=== PATIENT | female | born 1975 | race Two or more races ===

== ENCOUNTER 2020-10-23 02:00 | Emergency (ER) | payer MEDICAID ==
[~2020-10-23] VITALS: Ht 160 cm; Wt 111.4 kg
[~2020-10-23 02:00] MED LIST: [UNRECOGNIZED DRUG - REMARK]
[2020-10-23] MEDS ORDERED: KETOROLAC TROMETHAMINE 30 MG/ML VIAL IM ONE (02:15)
[2020-10-23] MEDS ORDERED: LIDOCAINE 5% TRANSDERMAL PATCH TD ONE (02:15)
[2020-10-23 02:30] VITALS: BP 202/136
[2020-10-23] MEDS ORDERED: CARVEDILOL 3.125 MG TABLET PO ONE (02:30)
[2020-10-23] MEDS ORDERED: FUROSEMIDE 20 MG TABLET PO ONE (02:30)
== END 2020-10-23 03:12 | disposition left against medical advice (07) ==
LOC: EMS 02:01
DX: M79.602 Pain in left arm (principal); I10 Essential (primary) hypertension; I11.0 Hypertensive heart disease with heart failure; I50.9 Heart failure, unspecified; E11.9 Type 2 diabetes mellitus without complications
CPT/HCPCS: 73090; 99283; J1885

== ENCOUNTER 2020-11-22 19:11 | Emergency (ER) | payer MEDICAID ==
[~2020-11-22] VITALS: Ht 157.5 cm; Wt 111.4 kg
[2020-11-22] MEDS ORDERED: CARV3 PO (21:54)
[2020-11-22] MEDS ORDERED: ASPI-1450 PO (21:54)
[2020-11-22] MEDS ORDERED: FURO20 PO (21:54)
[2020-11-22] MEDS ORDERED: INSULIN GLARGINE,HUM.REC.ANLOG 100 UNITS/ML SQ ONE (22:00)
[2020-11-22] MEDS ORDERED: FUROSEMIDE 20 MG TABLET PO ONE (22:00)
[2020-11-22] MEDS ORDERED: CARVEDILOL 3.125 MG TABLET PO ONE (22:00)
[2020-11-22] MEDS ORDERED: NAPROXEN 250 MG TABLET PO ONE (22:00)
[2020-11-22 22:40] VITALS: BP 151/98
== END 2020-11-22 23:09 | disposition left against medical advice (07) ==
LOC: EMS 19:12
DX: R35.8 Other polyuria (principal); E11.65 Type 2 diabetes mellitus with hyperglycemia
CPT/HCPCS: 82962; 96372; 99284; J1815

== ENCOUNTER 2021-09-16 07:45 | Inpatient (IN) | payer MEDICAID ==
[~2021-09-16] VITALS: Ht 157.5 cm; Wt 114.3 kg
[~2021-09-16 07:45] MED LIST changes: +ASPI-1450 PO; +CARV3 PO; +FURO20 PO
[2021-09-16] MEDS ORDERED: SODIUM CHLORIDE 0.9% 1,000 ML IV ONE (09:00)
[2021-09-16] MEDS ORDERED: ONDANSETRON HCL 4 MG/2 ML VIAL IVP ONE (09:00)
[2021-09-16 09:17] LABS: BASOPHILS % (AUTO) 1.2 % (0.0-2.0); EOSINOPHILS % (AUTO) 1.7 % (1.0-6.0); HEMATOCRIT 40.6 % (36-46); HEMOGLOBIN 13.9 g/dL (12.0-16.0); LYMPHOCYTES # (AUTO) 1.1 K/uL (1.0-4.8); LYMPHOCYTES % (AUTO) 14.4 % (22.0-44.0); MEAN CORPUSCULAR HEMOGLOBIN 30.3 pg (26.0-34.0); MEAN CORPUSCULAR HGB CONC 34.2 G/dL (31.0-37.0); MEAN CORPUSCULAR VOLUME 89 fL (80-100); MONOCYTES # (AUTO) 0.4 K/uL (0.1-1.0); MONOCYTES % (AUTO) 5.5 % (2.0-9.0); NEUTROPHILS # (AUTO) 5.9 K/uL (1.8-7.7); NEUTROPHILS % (AUTO) 77.2 % (40.0-70.0); PLATELET COUNT (AUTO) 330 K/uL (150-450); RED BLOOD CELL COUNT(AUTO) 4.59 MIL/uL (4.00-5.20); RED CELL DISTRIBUTION WIDTH 13.2 % (11.5-14.5)
[2021-09-16 09:36] LABS: B-TYPE NATRIURETIC PEPTIDE 342 pg/mL (0-100)
[2021-09-16 09:41] LABS: ANION GAP 11 mmol/L (8-16); CALCIUM, TOTAL 8.4 mg/dL (8.8-10.5); CARBON DIOXIDE 29 mmol/L (22-29); CHLORIDE 100 mmol/L (98-107); CREATININE 0.87 mg/dL (0.60-1.30); GLOMERULAR FILTR. RATE CALC > 60 mL/min (>60); GLUCOSE,RANDOM 268 mg/dL (70-110); POTASSIUM 3.6 mmol/L (3.5-5.1); SODIUM SERUM 140 mmol/L (136-145); UREA NITROGEN, BLOOD 14 mg/dL (7-18)
[2021-09-16] MEDS ORDERED: MORPHINE SULFATE 4 MG/ML SYRINGE IVP ONE (09:45)
[2021-09-16] MEDS ORDERED: NITROGLYCERIN 0.4 MG SUBLINGUAL TABLET #25 SL ONE (09:45)
[2021-09-16] MEDS ORDERED: ASPIRIN 81 MG CHEWABLE TABLET PO ONE (09:45)
[2021-09-16] MEDS ORDERED: IOHEXOL 350 MG/ML 150 ML VIAL ONE (09:51)
[2021-09-16] MEDS ORDERED: SODIUM CHLORIDE 0.9% 0 ML ONE (09:51)
[2021-09-16 10:02] LABS: ALANINE AMINOTRANSFERASE 76 U/L (12-78); ALBUMIN 3.2 g/dL (3.4-5.0); ALKALINE PHOSPHATASE 72 U/L (46-116); ASPARTATE AMINOTRANSFERASE 54 U/L (15-37); BILIRUBIN,TOTAL 0.6 mg/dL (0.1-1.0); CREATINE KINASE, TOTAL ONLY 93 U/L (26-192); HCG,QUANTITATIVE 1 mIU/mL (0-6); LIPASE 169 U/L (73-393); TOTAL PROTEIN, SERUM 7.4 g/dL (6.4-8.2)
[2021-09-16 11:17] LABS: COVID AG,FIA SOURCE NASAL SWAB
[2021-09-16 11:24] LABS: APPEARANCE,URINE CLEAR (CLEAR); BILIRUBIN,URINE NEGATIVE (NEGATIVE); GLUCOSE, URINE (UA) 300-500 mg/dL (NEGATIVE); KETONES,URINE TRACE mg/dL (NEGATIVE); LEUKOCYTE ESTERASE ,URINE NEGATIVE (NEGATIVE); NITRATE,URINE NEGATIVE (NEGATIVE); OCCULT BLOOD,URINE NEGATIVE (NEGATIVE); PROTEIN,URINE NEGATIVE (NEGATIVE); SPECIFIC GRAVITIY, URINE 1.011 (1.003-1.030); UROBILINOGEN,URINE <=1.0 mg/dL (<=1.0)
[2021-09-16] MEDS ORDERED: LABETALOL HCL 5 MG/ML 20 ML VIAL IVP ONE (11:45)
[2021-09-16 11:46] LABS: AMPHET/METH SCREEN,URINE POSITIVE (NEGATIVE); BARBITURATE SCREEN, URINE NEGATIVE (NEGATIVE); BENZODIAZEPINES SCREEN,URINE NEGATIVE (NEGATIVE); CANNABINOID SCREEN,URINE NEGATIVE (NEGATIVE); COCAINE SCREEN,URINE NEGATIVE (NEGATIVE); METHADONE SCREEN, URINE NEGATIVE (NEGATIVE); OPIATE SCREEN,URINE NEGATIVE (NEGATIVE)
[2021-09-16 11:57] LABS: PHENCYCLIDINE SCREEN,URINE NEGATIVE (NEGATIVE)
[2021-09-16 12:11] LABS: BACTERIA,URINE None Seen /HPF (None Seen); RBC,URINE None Seen /HPF (0-2); SQUAMOUS EPITHELIAL CELL,UR Few /LPF (None Seen); WBC,URINE None Seen /HPF (0-5)
[2021-09-16] MEDS ORDERED: ACETAMINOPHEN 325 MG TABLET PO PRN (12:45)
[2021-09-16] MEDS ORDERED: 0.9% SODIUM CHLORIDE 10 ML SYRINGE IVP PRN (12:45)
[2021-09-16] MEDS ORDERED: ONDANSETRON HCL 4 MG/2 ML VIAL IVP PRN ×2 (12:45→14:00)
[2021-09-16] MEDS ORDERED: CARVEDILOL 3.125 MG TABLET PO ONE (13:15)
[2021-09-16] MEDS ORDERED: CARVEDILOL 3.125 MG TABLET PO SCH (13:15)
[2021-09-16] MEDS ORDERED: PANTOPRAZOLE SODIUM 40 MG DR TABLET PO SCH (13:45)
[2021-09-16] MEDS ORDERED: MORPHINE SULFATE 2 MG/ML SYRINGE IVP PRN (13:45)
[2021-09-16] MEDS ORDERED: NITROGLYCERIN 0.4 MG SUBLINGUAL TABLET #25 SL PRN (13:45)
[2021-09-16] MEDS ORDERED: ZOLPIDEM TARTRATE 5 MG TABLET PO PRN (14:00)
[2021-09-16] MEDS ORDERED: BISACODYL 10 MG RECTAL RECTAL SUPPOSITORY PR PRN (14:00)
[2021-09-16] MEDS ORDERED: MAGNESIUM HYDROXIDE SUSPENSION 30 ML UDCUP PO PRN (14:00)
[2021-09-16] MEDS: MORPHINE SULFATE 2 MG/ML SYRINGE IVP PRN ×2 (14:36→21:42)
[2021-09-16] MEDS: AmLODIPine BESYLATE 10 MG TABLET PO SCH (14:38)
[2021-09-16 15:53] VITALS: BP 170/118
[2021-09-16] MEDS: LABETALOL HCL 5 MG/ML 20 ML VIAL IVP PRN ×2 (15:55→20:44)
[2021-09-16] MEDS: LOSARTAN POTASSIUM 25 MG TABLET PO SCH (17:11)
[2021-09-16] MEDS ORDERED: DEXTROSE 50%-WATER 25 GM/50 ML SYRINGE IVP PRN (20:15)
[2021-09-16 20:19] VITALS: BP 180/112
[2021-09-16] MEDS: OXYMETAZOLINE HCL 0.05% 15 ML NASAL SPRAY NASAL SCH (20:40)
[2021-09-16] MEDS: DOCUSATE SODIUM 100 MG CAPSULE PO SCH (20:40)
[2021-09-16] MEDS: INSULIN LISPRO 100 UNITS/ML SQ PRN (20:42)
[2021-09-16] MEDS: CARVEDILOL 6.25 MG TABLET PO SCH (20:43)
[2021-09-16 23:45] VITALS: BP 164/107
[2021-09-17] MEDS: OXYMETAZOLINE HCL 0.05% 15 ML NASAL SPRAY NASAL SCH ×4 (00:20→23:30)
[2021-09-17] MEDS: MORPHINE SULFATE 2 MG/ML SYRINGE IVP PRN ×3 (02:20→15:45)
[2021-09-17 03:36] LABS: GLUCOMETER DEV NAME(LOC) 5S.1B; GLUCOSE,POINT OF CARE 211 MG/DL (70-110)
[2021-09-17 05:06] VITALS: BP 148/94
[2021-09-17] MEDS: INSULIN LISPRO 100 UNITS/ML SQ PRN ×4 (05:57→20:31)
[2021-09-17 06:13] LABS: BASOPHILS % (AUTO) 1.2 % (0.0-2.0); EOSINOPHILS % (AUTO) 0.3 % (1.0-6.0); HEMATOCRIT 41.9 % (36-46); LYMPHOCYTES # (AUTO) 1.3 K/uL (1.0-4.8); LYMPHOCYTES % (AUTO) 12.6 % (22.0-44.0); MEAN CORPUSCULAR HEMOGLOBIN 29.8 pg (26.0-34.0); MEAN CORPUSCULAR HGB CONC 33.5 G/dL (31.0-37.0); MEAN CORPUSCULAR VOLUME 89 fL (80-100); MONOCYTES # (AUTO) 0.5 K/uL (0.1-1.0); MONOCYTES % (AUTO) 4.3 % (2.0-9.0); NEUTROPHILS # (AUTO) 8.7 K/uL (1.8-7.7); NEUTROPHILS % (AUTO) 81.6 % (40.0-70.0); PLATELET COUNT (AUTO) 433 K/uL (150-450); RED CELL DISTRIBUTION WIDTH 13.3 % (11.5-14.5)
[2021-09-17 06:27] LABS: ALANINE AMINOTRANSFERASE 75 U/L (12-78); ALBUMIN 3.2 g/dL (3.4-5.0); ALKALINE PHOSPHATASE 77 U/L (46-116); ANION GAP 8 mmol/L (8-16); ASPARTATE AMINOTRANSFERASE 48 U/L (15-37); BILIRUBIN,TOTAL 0.7 mg/dL (0.1-1.0); CALCIUM, TOTAL 8.8 mg/dL (8.8-10.5); CARBON DIOXIDE 28 mmol/L (22-29); CHLORIDE 100 mmol/L (98-107); CREATININE 0.73 mg/dL (0.60-1.30); GLOMERULAR FILTR. RATE CALC > 60 mL/min (>60); GLUCOSE,RANDOM 180 mg/dL (70-110); POTASSIUM 3.8 mmol/L (3.5-5.1); SODIUM SERUM 136 mmol/L (136-145); TOTAL PROTEIN, SERUM 7.6 g/dL (6.4-8.2); UREA NITROGEN, BLOOD 17 mg/dL (7-18)
[2021-09-17 07:28] VITALS: BP 155/104
[2021-09-17] MEDS ORDERED: GADOTERATE MEGLUMINE 10 MMOL/20 ML VIAL IVP ONE (08:05)
[2021-09-17] MEDS: ASPIRIN 81 MG DR TABLET PO SCH (09:06)
[2021-09-17] MEDS: LOSARTAN POTASSIUM 25 MG TABLET PO SCH (09:06)
[2021-09-17] MEDS: DOCUSATE SODIUM 100 MG CAPSULE PO SCH ×2 (09:06→20:28)
[2021-09-17] MEDS: CARVEDILOL 6.25 MG TABLET PO SCH (09:07)
[2021-09-17] MEDS: AmLODIPine BESYLATE 10 MG TABLET PO SCH (09:07)
[2021-09-17] MEDS: PANTOPRAZOLE SODIUM 40 MG DR TABLET PO SCH (09:07)
[2021-09-17 11:14] VITALS: BP 146/92
[2021-09-17] MEDS ORDERED: LORazepam 2 MG/ML VIAL IVP ONE (12:45)
[2021-09-17 13:41] LABS: GLUCOMETER DEV NAME(LOC) 5S.1B; GLUCOSE,POINT OF CARE 230 MG/DL (70-110)
[2021-09-17 15:18] VITALS: BP 136/97
[2021-09-17 20:01] VITALS: BP 149/100
[2021-09-17] MEDS: ATORVASTATIN CALCIUM 40 MG TABLET PO SCH (20:28)
[2021-09-17] MEDS: CARVEDILOL 12.5 MG TABLET PO SCH (20:28)
[2021-09-17] MEDS: MECLIZINE HCL 25 MG TABLET PO PRN (23:31)
[2021-09-17 23:56] LABS: GLUCOMETER DEV NAME(LOC) 5S.2B; GLUCOSE,POINT OF CARE 169 MG/DL (70-110)
[2021-09-18] VITALS (7 sets, daily range): BP systolic 125–153; BP diastolic 80–105
[2021-09-18 05:32] LABS: GLUCOMETER DEV NAME(LOC) 5N.1C; GLUCOSE,POINT OF CARE 212 MG/DL (70-110)
[2021-09-18 05:32] LABS: GLUCOMETER DEV NAME(LOC) 5N.1C; GLUCOSE,POINT OF CARE 156 MG/DL (70-110)
[2021-09-18] MEDS: MORPHINE SULFATE 2 MG/ML SYRINGE IVP PRN ×3 (05:47→13:55)
[2021-09-18] MEDS: INSULIN LISPRO 100 UNITS/ML SQ PRN ×4 (05:51→20:09)
[2021-09-18] MEDS: ONDANSETRON HCL 4 MG/2 ML VIAL IVP PRN (06:25)
[2021-09-18 06:26] LABS: BASOPHILS % (AUTO) 0.7 % (0.0-2.0); EOSINOPHILS % (AUTO) 0.6 % (1.0-6.0); HEMATOCRIT 40.5 % (36-46); HEMOGLOBIN 13.8 g/dL (12.0-16.0); LYMPHOCYTES # (AUTO) 1.8 K/uL (1.0-4.8); LYMPHOCYTES % (AUTO) 21.5 % (22.0-44.0); MEAN CORPUSCULAR HEMOGLOBIN 30.1 pg (26.0-34.0); MEAN CORPUSCULAR HGB CONC 34.1 G/dL (31.0-37.0); MEAN CORPUSCULAR VOLUME 88 fL (80-100); MONOCYTES # (AUTO) 0.5 K/uL (0.1-1.0); NEUTROPHILS # (AUTO) 6.1 K/uL (1.8-7.7); NEUTROPHILS % (AUTO) 71.2 % (40.0-70.0); PLATELET COUNT (AUTO) 422 K/uL (150-450); RED BLOOD CELL COUNT(AUTO) 4.58 MIL/uL (4.00-5.20); RED CELL DISTRIBUTION WIDTH 13.2 % (11.5-14.5)
[2021-09-18 06:34] LABS: HEMOGLOBIN A1C 8.1 % (3.8-5.6)
[2021-09-18 07:21] LABS: ANION GAP 3 mmol/L (8-16); CALCIUM, TOTAL 8.8 mg/dL (8.8-10.5); CARBON DIOXIDE 29 mmol/L (22-29); CHLORIDE 100 mmol/L (98-107); CHOL/HDL RATIO 3.6 (3.9-5.7); CHOLESTEROL 164 mg/dL (131-200); GLOMERULAR FILTR. RATE CALC > 60 mL/min (>60); GLUCOSE,RANDOM 194 mg/dL (70-110); HDL CHOLESTEROL 46 mg/dL (40-60); LDL CHOL (CALC.) 95 mg/dL (0-130); SODIUM SERUM 132 mmol/L (136-145); TRIGLYCERIDES 113 mg/dL (15-150); UREA NITROGEN, BLOOD 15 mg/dL (7-18)
[2021-09-18 08:07] LABS: GLUCOMETER DEV NAME(LOC) 5N.1C; GLUCOSE,POINT OF CARE 177 MG/DL (70-110)
[2021-09-18] MEDS: CARVEDILOL 12.5 MG TABLET PO SCH ×2 (08:52→20:07)
[2021-09-18] MEDS: PANTOPRAZOLE SODIUM 40 MG DR TABLET PO SCH (08:53)
[2021-09-18] MEDS: LOSARTAN POTASSIUM 50 MG TABLET PO SCH (08:53)
[2021-09-18] MEDS: AmLODIPine BESYLATE 10 MG TABLET PO SCH (08:53)
[2021-09-18] MEDS: ASPIRIN 81 MG DR TABLET PO SCH (08:53)
[2021-09-18] MEDS: CLOPIDOGREL BISULFATE 75 MG TABLET PO SCH (08:54)
[2021-09-18] MEDS: DOCUSATE SODIUM 100 MG CAPSULE PO SCH ×2 (08:54→20:07)
[2021-09-18] MEDS: OXYMETAZOLINE HCL 0.05% 15 ML NASAL SPRAY NASAL SCH ×3 (08:54→23:21)
[2021-09-18] MEDS: MECLIZINE HCL 25 MG TABLET PO PRN (09:58)
[2021-09-18] MEDS: HYDROCODONE/ACETAMINOPHEN 5-325 MG TABLET PO PRN ×2 (16:58→23:21)
[2021-09-18] MEDS: ATORVASTATIN CALCIUM 40 MG TABLET PO SCH (20:07)
[2021-09-18 20:26] LABS: GLUCOMETER DEV NAME(LOC) 5S.1B; GLUCOSE,POINT OF CARE 193 MG/DL (70-110)
[2021-09-18 20:27] LABS: GLUCOMETER DEV NAME(LOC) 5S.1B; GLUCOSE,POINT OF CARE 178 MG/DL (70-110)
[2021-09-18 21:51] LABS: GLUCOMETER DEV NAME(LOC) 5N.1C; GLUCOSE,POINT OF CARE 181 MG/DL (70-110)
[2021-09-19 00:08] VITALS: BP 138/77
[2021-09-19] MEDS: HYDROCODONE/ACETAMINOPHEN 5-325 MG TABLET PO PRN ×2 (03:53→15:13)
[2021-09-19 04:44] VITALS: BP 121/76
[2021-09-19] MEDS: INSULIN LISPRO 100 UNITS/ML SQ PRN ×4 (06:17→20:24)
[2021-09-19 06:51] LABS: GLUCOMETER DEV NAME(LOC) 5S.1B; GLUCOSE,POINT OF CARE 184 MG/DL (70-110)
[2021-09-19 07:40] VITALS: BP 126/72
[2021-09-19] MEDS: OXYMETAZOLINE HCL 0.05% 15 ML NASAL SPRAY NASAL SCH ×2 (08:23→15:13)
[2021-09-19] MEDS: ASPIRIN 81 MG DR TABLET PO SCH (08:23)
[2021-09-19] MEDS: PANTOPRAZOLE SODIUM 40 MG DR TABLET PO SCH (08:24)
[2021-09-19] MEDS: CLOPIDOGREL BISULFATE 75 MG TABLET PO SCH (08:24)
[2021-09-19] MEDS: AmLODIPine BESYLATE 10 MG TABLET PO SCH (08:24)
[2021-09-19] MEDS: DOCUSATE SODIUM 100 MG CAPSULE PO SCH ×2 (08:25→20:15)
[2021-09-19] MEDS: LOSARTAN POTASSIUM 50 MG TABLET PO SCH (08:25)
[2021-09-19] MEDS: CARVEDILOL 12.5 MG TABLET PO SCH ×2 (08:25→20:15)
[2021-09-19 10:52] VITALS: BP 122/78
[2021-09-19] MEDS: MECLIZINE HCL 25 MG TABLET PO PRN (12:26)
[2021-09-19 14:07] LABS: GLUCOMETER DEV NAME(LOC) 5S.1B; GLUCOSE,POINT OF CARE 210 MG/DL (70-110)
[2021-09-19 15:11] VITALS: BP 136/82
[2021-09-19] MEDS: ONDANSETRON HCL 4 MG/2 ML VIAL IVP PRN (18:06)
[2021-09-19 18:26] LABS: GLUCOMETER DEV NAME(LOC) 5N.3; GLUCOSE,POINT OF CARE 247 MG/DL (70-110)
[2021-09-19] MEDS: ATORVASTATIN CALCIUM 40 MG TABLET PO SCH (20:15)
[2021-09-19] MEDS: MORPHINE SULFATE 2 MG/ML SYRINGE IVP PRN (20:15)
[2021-09-19 20:24] VITALS: BP 137/99
[2021-09-20] VITALS (7 sets, daily range): BP systolic 128–177; BP diastolic 77–111
[2021-09-20] MEDS: OXYMETAZOLINE HCL 0.05% 15 ML NASAL SPRAY NASAL SCH ×5 (00:15→23:07)
[2021-09-20 02:14] LABS: BASOPHILS % (AUTO) 0.9 % (0.0-2.0); EOSINOPHILS % (AUTO) 0.5 % (1.0-6.0); HEMATOCRIT 35.1 % (36-46); HEMOGLOBIN 11.8 g/dL (12.0-16.0); LYMPHOCYTES # (AUTO) 2.4 K/uL (1.0-4.8); MEAN CORPUSCULAR HEMOGLOBIN 29.7 pg (26.0-34.0); MEAN CORPUSCULAR HGB CONC 33.8 G/dL (31.0-37.0); MEAN CORPUSCULAR VOLUME 88 fL (80-100); MONOCYTES # (AUTO) 0.7 K/uL (0.1-1.0); MONOCYTES % (AUTO) 6.8 % (2.0-9.0); NEUTROPHILS # (AUTO) 7.3 K/uL (1.8-7.7); NEUTROPHILS % (AUTO) 68.8 % (40.0-70.0); PLATELET COUNT (AUTO) 409 K/uL (150-450); RED BLOOD CELL COUNT(AUTO) 3.99 MIL/uL (4.00-5.20)
[2021-09-20] MEDS: INSULIN LISPRO 100 UNITS/ML SQ PRN ×4 (05:41→20:47)
[2021-09-20] MEDS: MORPHINE SULFATE 2 MG/ML SYRINGE IVP PRN ×2 (06:12→23:55)
[2021-09-20] MEDS: ASPIRIN 81 MG DR TABLET PO SCH (08:20)
[2021-09-20] MEDS: AmLODIPine BESYLATE 10 MG TABLET PO SCH (08:20)
[2021-09-20] MEDS: PANTOPRAZOLE SODIUM 40 MG DR TABLET PO SCH (08:20)
[2021-09-20] MEDS: LOSARTAN POTASSIUM 50 MG TABLET PO SCH (08:20)
[2021-09-20] MEDS: CLOPIDOGREL BISULFATE 75 MG TABLET PO SCH (08:21)
[2021-09-20] MEDS: CARVEDILOL 12.5 MG TABLET PO SCH ×2 (08:21→20:45)
[2021-09-20] MEDS: DOCUSATE SODIUM 100 MG CAPSULE PO SCH ×2 (08:21→20:44)
[2021-09-20] MEDS: HYDROCODONE/ACETAMINOPHEN 5-325 MG TABLET PO PRN ×2 (08:22→20:44)
[2021-09-20 12:57] LABS: GLUCOMETER DEV NAME(LOC) 5S.1B; GLUCOSE,POINT OF CARE 216 MG/DL (70-110)
[2021-09-20 12:57] LABS: GLUCOMETER DEV NAME(LOC) 5N.1C; GLUCOSE,POINT OF CARE 186 MG/DL (70-110)
[2021-09-20 15:46] LABS: GLUCOMETER DEV NAME(LOC) 5N.3; GLUCOSE,POINT OF CARE 202 MG/DL (70-110)
[2021-09-20] MEDS: ONDANSETRON HCL 4 MG/2 ML VIAL IVP PRN (17:30)
[2021-09-20] MEDS: ATORVASTATIN CALCIUM 40 MG TABLET PO SCH (20:45)
[2021-09-20] MEDS: LABETALOL HCL 5 MG/ML 20 ML VIAL IVP PRN (23:54)
[2021-09-21 03:38] VITALS: BP 136/105
[2021-09-21 03:40] LABS: GLUCOMETER DEV NAME(LOC) 5S.1B; GLUCOSE,POINT OF CARE 185 MG/DL (70-110)
[2021-09-21 03:40] LABS: GLUCOMETER DEV NAME(LOC) 5N.1C; GLUCOSE,POINT OF CARE 225 MG/DL (70-110)
[2021-09-21] MEDS: HYDROCODONE/ACETAMINOPHEN 5-325 MG TABLET PO PRN (04:05)
[2021-09-21] MEDS: INSULIN LISPRO 100 UNITS/ML SQ PRN ×4 (06:03→20:33)
[2021-09-21 06:21] LABS: GLUCOMETER DEV NAME(LOC) 5S.2B; GLUCOSE,POINT OF CARE 231 MG/DL (70-110)
[2021-09-21] MEDS: OXYMETAZOLINE HCL 0.05% 15 ML NASAL SPRAY NASAL SCH ×3 (08:00→23:17)
[2021-09-21] MEDS: DOCUSATE SODIUM 100 MG CAPSULE PO SCH ×2 (08:07→20:32)
[2021-09-21] MEDS: PANTOPRAZOLE SODIUM 40 MG DR TABLET PO SCH (08:07)
[2021-09-21] MEDS: ASPIRIN 81 MG DR TABLET PO SCH (08:07)
[2021-09-21] MEDS: CLOPIDOGREL BISULFATE 75 MG TABLET PO SCH (08:08)
[2021-09-21] MEDS: CARVEDILOL 12.5 MG TABLET PO SCH ×2 (08:08→20:32)
[2021-09-21] MEDS: AmLODIPine BESYLATE 10 MG TABLET PO SCH (08:08)
[2021-09-21] MEDS: LOSARTAN POTASSIUM 50 MG TABLET PO SCH (08:09)
[2021-09-21 08:10] VITALS: BP 119/74
[2021-09-21 08:58] LABS: BASOPHILS % (AUTO) 0.5 % (0.0-2.0); EOSINOPHILS % (AUTO) 0.1 % (1.0-6.0); HEMATOCRIT 31.6 % (36-46); HEMOGLOBIN 10.8 g/dL (12.0-16.0); LYMPHOCYTES # (AUTO) 2.2 K/uL (1.0-4.8); LYMPHOCYTES % (AUTO) 14.9 % (22.0-44.0); MEAN CORPUSCULAR HEMOGLOBIN 30.5 pg (26.0-34.0); MEAN CORPUSCULAR HGB CONC 34.2 G/dL (31.0-37.0); MEAN CORPUSCULAR VOLUME 89 fL (80-100); MONOCYTES # (AUTO) 0.8 K/uL (0.1-1.0); MONOCYTES % (AUTO) 5.2 % (2.0-9.0); NEUTROPHILS # (AUTO) 11.6 K/uL (1.8-7.7); NEUTROPHILS % (AUTO) 79.3 % (40.0-70.0); PLATELET COUNT (AUTO) 436 K/uL (150-450); RED BLOOD CELL COUNT(AUTO) 3.54 MIL/uL (4.00-5.20)
[2021-09-21 09:05] LABS: ANION GAP 6 mmol/L (8-16); CALCIUM, TOTAL 8.7 mg/dL (8.8-10.5); CARBON DIOXIDE 31 mmol/L (22-29); CHLORIDE 100 mmol/L (98-107); CREATININE 0.78 mg/dL (0.60-1.30); GLOMERULAR FILTR. RATE CALC > 60 mL/min (>60); GLUCOSE,RANDOM 231 mg/dL (70-110); POTASSIUM 4.4 mmol/L (3.5-5.1); SODIUM SERUM 137 mmol/L (136-145); UREA NITROGEN, BLOOD 31 mg/dL (7-18)
[2021-09-21 12:18] VITALS: BP 120/84
[2021-09-21 16:27] VITALS: BP 138/88
[2021-09-21] MEDS: MetFORMIN HCL 500 MG TABLET PO SCH (18:19)
[2021-09-21] MEDS: ACETAMINOPHEN 325 MG TABLET PO PRN ×2 (18:20→22:49)
[2021-09-21 20:21] LABS: GLUCOMETER DEV NAME(LOC) 5N.3; GLUCOSE,POINT OF CARE 253 MG/DL (70-110)
[2021-09-21] MEDS: ATORVASTATIN CALCIUM 40 MG TABLET PO SCH (20:32)
[2021-09-21 20:36] LABS: GLUCOMETER DEV NAME(LOC) 5S.1B; GLUCOSE,POINT OF CARE 205 MG/DL (70-110)
[2021-09-21 20:57] VITALS: BP 134/85
[2021-09-22 00:50] VITALS: BP 110/83
[2021-09-22 05:56] LABS: GLUCOMETER DEV NAME(LOC) 5S.2B; GLUCOSE,POINT OF CARE 194 MG/DL (70-110)
[2021-09-22 06:03] VITALS: BP 120/80
[2021-09-22] MEDS: ACETAMINOPHEN 325 MG TABLET PO PRN ×2 (06:59→16:42)
[2021-09-22] MEDS: INSULIN LISPRO 100 UNITS/ML SQ PRN ×4 (07:02→20:29)
[2021-09-22] MEDS: OXYMETAZOLINE HCL 0.05% 15 ML NASAL SPRAY NASAL SCH ×3 (08:00→23:34)
[2021-09-22 08:22] VITALS: BP 130/76
[2021-09-22] MEDS: MetFORMIN HCL 500 MG TABLET PO SCH ×2 (08:29→16:42)
[2021-09-22] MEDS: CLOPIDOGREL BISULFATE 75 MG TABLET PO SCH (08:29)
[2021-09-22] MEDS: LOSARTAN POTASSIUM 50 MG TABLET PO SCH (08:29)
[2021-09-22] MEDS: CARVEDILOL 12.5 MG TABLET PO SCH ×2 (08:29→20:23)
[2021-09-22] MEDS: AmLODIPine BESYLATE 10 MG TABLET PO SCH (08:29)
[2021-09-22] MEDS: ASPIRIN 81 MG DR TABLET PO SCH (08:29)
[2021-09-22] MEDS: DOCUSATE SODIUM 100 MG CAPSULE PO SCH ×2 (08:29→20:23)
[2021-09-22] MEDS: PANTOPRAZOLE SODIUM 40 MG DR TABLET PO SCH (08:29)
[2021-09-22 09:20] LABS: BASOPHILS % (AUTO) 0.8 % (0.0-2.0); EOSINOPHILS % (AUTO) 0.3 % (1.0-6.0); HEMATOCRIT 24.9 % (36-46); HEMOGLOBIN 8.5 g/dL (12.0-16.0); LYMPHOCYTES # (AUTO) 2.4 K/uL (1.0-4.8); LYMPHOCYTES % (AUTO) 16.5 % (22.0-44.0); MEAN CORPUSCULAR HEMOGLOBIN 30.4 pg (26.0-34.0); MEAN CORPUSCULAR HGB CONC 34.1 G/dL (31.0-37.0); MEAN CORPUSCULAR VOLUME 89 fL (80-100); MONOCYTES # (AUTO) 0.7 K/uL (0.1-1.0); MONOCYTES % (AUTO) 4.5 % (2.0-9.0); NEUTROPHILS # (AUTO) 11.5 K/uL (1.8-7.7); NEUTROPHILS % (AUTO) 77.9 % (40.0-70.0); PLATELET COUNT (AUTO) 418 K/uL (150-450); RED BLOOD CELL COUNT(AUTO) 2.78 MIL/uL (4.00-5.20); RED CELL DISTRIBUTION WIDTH 13.4 % (11.5-14.5)
[2021-09-22 09:34] LABS: B-TYPE NATRIURETIC PEPTIDE 75 pg/mL (0-100)
[2021-09-22 09:45] LABS: ALANINE AMINOTRANSFERASE 58 U/L (12-78); ALBUMIN 2.6 g/dL (3.4-5.0); ALKALINE PHOSPHATASE 53 U/L (46-116); ANION GAP 5 mmol/L (8-16); ASPARTATE AMINOTRANSFERASE 36 U/L (15-37); BILIRUBIN,TOTAL 0.3 mg/dL (0.1-1.0); CALCIUM, TOTAL 8.5 mg/dL (8.8-10.5); CARBON DIOXIDE 29 mmol/L (22-29); CHLORIDE 102 mmol/L (98-107); CREATININE 0.78 mg/dL (0.60-1.30); GLOMERULAR FILTR. RATE CALC > 60 mL/min (>60); GLUCOSE,RANDOM 222 mg/dL (70-110); SODIUM SERUM 136 mmol/L (136-145); TOTAL PROTEIN, SERUM 6.1 g/dL (6.4-8.2); UREA NITROGEN, BLOOD 33 mg/dL (7-18)
[2021-09-22 11:08] VITALS: BP 137/83
[2021-09-22 12:01] LABS: GLUCOMETER DEV NAME(LOC) 5S.2B; GLUCOSE,POINT OF CARE 161 MG/DL (70-110)
[2021-09-22 14:38] LABS: BASOPHILS % (AUTO) 1.4 % (0.0-2.0); EOSINOPHILS % (AUTO) 0.2 % (1.0-6.0); HEMATOCRIT 25.2 % (36-46); HEMOGLOBIN 8.4 g/dL (12.0-16.0); LYMPHOCYTES # (AUTO) 2.6 K/uL (1.0-4.8); LYMPHOCYTES % (AUTO) 16.3 % (22.0-44.0); MEAN CORPUSCULAR HGB CONC 33.4 G/dL (31.0-37.0); MEAN CORPUSCULAR VOLUME 90 fL (80-100); MONOCYTES # (AUTO) 0.7 K/uL (0.1-1.0); MONOCYTES % (AUTO) 4.7 % (2.0-9.0); NEUTROPHILS # (AUTO) 12.3 K/uL (1.8-7.7); NEUTROPHILS % (AUTO) 77.4 % (40.0-70.0); PLATELET COUNT (AUTO) 413 K/uL (150-450); RED BLOOD CELL COUNT(AUTO) 2.81 MIL/uL (4.00-5.20); RED CELL DISTRIBUTION WIDTH 13.6 % (11.5-14.5)
[2021-09-22 14:56] VITALS: BP 123/78
[2021-09-22 20:21] VITALS: BP 109/82
[2021-09-22] MEDS: FUROSEMIDE 20 MG/2 ML VIAL IVP SCH (20:23)
[2021-09-22] MEDS: ATORVASTATIN CALCIUM 40 MG TABLET PO SCH (20:23)
[2021-09-22 20:56] LABS: GLUCOMETER DEV NAME(LOC) 5N.3; GLUCOSE,POINT OF CARE 134 MG/DL (70-110)
[2021-09-23 04:34] VITALS: BP 130/69
[2021-09-23] MEDS: INSULIN LISPRO 100 UNITS/ML SQ PRN ×2 (05:53→12:59)
[2021-09-23 05:56] LABS: GLUCOMETER DEV NAME(LOC) 5S.2B; GLUCOSE,POINT OF CARE 137 MG/DL (70-110)
[2021-09-23 07:41] VITALS: BP 108/74
[2021-09-23] MEDS: AmLODIPine BESYLATE 10 MG TABLET PO SCH (08:42)
[2021-09-23] MEDS: LOSARTAN POTASSIUM 50 MG TABLET PO SCH (08:42)
[2021-09-23] MEDS: DOCUSATE SODIUM 100 MG CAPSULE PO SCH ×2 (08:43→21:25)
[2021-09-23] MEDS: PANTOPRAZOLE SODIUM 40 MG DR TABLET PO SCH (08:44)
[2021-09-23] MEDS: CARVEDILOL 12.5 MG TABLET PO SCH ×2 (08:45→21:26)
[2021-09-23] MEDS: MetFORMIN HCL 500 MG TABLET PO SCH ×2 (08:46→17:46)
[2021-09-23] MEDS: FUROSEMIDE 20 MG/2 ML VIAL IVP SCH ×2 (08:47→21:25)
[2021-09-23] MEDS: OXYMETAZOLINE HCL 0.05% 15 ML NASAL SPRAY NASAL SCH ×3 (08:48→23:14)
[2021-09-23 09:08] LABS: BASOPHILS % (AUTO) 0.8 % (0.0-2.0); EOSINOPHILS % (AUTO) 0.4 % (1.0-6.0); HEMATOCRIT 24.7 % (36-46); HEMOGLOBIN 8.3 g/dL (12.0-16.0); LYMPHOCYTES % (AUTO) 21.8 % (22.0-44.0); MEAN CORPUSCULAR HEMOGLOBIN 30.2 pg (26.0-34.0); MEAN CORPUSCULAR HGB CONC 33.8 G/dL (31.0-37.0); MEAN CORPUSCULAR VOLUME 90 fL (80-100); MONOCYTES # (AUTO) 0.7 K/uL (0.1-1.0); MONOCYTES % (AUTO) 5.2 % (2.0-9.0); NEUTROPHILS # (AUTO) 9.8 K/uL (1.8-7.7); NEUTROPHILS % (AUTO) 71.8 % (40.0-70.0); PLATELET COUNT (AUTO) 432 K/uL (150-450); RED BLOOD CELL COUNT(AUTO) 2.76 MIL/uL (4.00-5.20)
[2021-09-23 09:21] LABS: GLUCOMETER DEV NAME(LOC) 5S.1B; GLUCOSE,POINT OF CARE 153 MG/DL (70-110)
[2021-09-23 09:21] LABS: GLUCOMETER DEV NAME(LOC) 5S.1B; GLUCOSE,POINT OF CARE 174 MG/DL (70-110)
[2021-09-23 09:31] LABS: ALANINE AMINOTRANSFERASE 63 U/L (12-78); ALBUMIN 2.7 g/dL (3.4-5.0); ALKALINE PHOSPHATASE 54 U/L (46-116); ANION GAP 7 mmol/L (8-16); ASPARTATE AMINOTRANSFERASE 41 U/L (15-37); BILIRUBIN,TOTAL 0.4 mg/dL (0.1-1.0); CARBON DIOXIDE 29 mmol/L (22-29); CHLORIDE 101 mmol/L (98-107); GLOMERULAR FILTR. RATE CALC > 60 mL/min (>60); GLUCOSE,RANDOM 187 mg/dL (70-110); POTASSIUM 4.3 mmol/L (3.5-5.1); SODIUM SERUM 137 mmol/L (136-145); TOTAL PROTEIN, SERUM 6.4 g/dL (6.4-8.2); UREA NITROGEN, BLOOD 33 mg/dL (7-18)
[2021-09-23 10:34] LABS: CALCIUM, TOTAL 8.8 mg/dL (8.8-10.5)
[2021-09-23 12:38] VITALS: BP 109/64
[2021-09-23 13:51] LABS: GLUCOMETER DEV NAME(LOC) 5S.2B; GLUCOSE,POINT OF CARE 169 MG/DL (70-110)
[2021-09-23 16:05] VITALS: BP 129/65
[2021-09-23] MEDS: MECLIZINE HCL 25 MG TABLET PO PRN (17:48)
[2021-09-23 19:53] VITALS: BP 134/79
[2021-09-23 21:06] LABS: GLUCOMETER DEV NAME(LOC) 5N.3; GLUCOSE,POINT OF CARE 96 MG/DL (70-110)
[2021-09-23] MEDS: ATORVASTATIN CALCIUM 40 MG TABLET PO SCH (21:26)
[2021-09-23] MEDS: ACETAMINOPHEN 325 MG TABLET PO PRN (21:27)
[2021-09-23 23:54] VITALS: BP 110/62
[2021-09-24 00:16] LABS: GLUCOMETER DEV NAME(LOC) 5N.1C; GLUCOSE,POINT OF CARE 130 MG/DL (70-110)
[2021-09-24 04:17] VITALS: BP 111/71
[2021-09-24 07:41] VITALS: BP 128/79
[2021-09-24] MEDS: OXYMETAZOLINE HCL 0.05% 15 ML NASAL SPRAY NASAL SCH ×3 (08:00→23:17)
[2021-09-24] MEDS: AmLODIPine BESYLATE 10 MG TABLET PO SCH (09:02)
[2021-09-24] MEDS: PANTOPRAZOLE SODIUM 40 MG DR TABLET PO SCH (09:02)
[2021-09-24] MEDS: DOCUSATE SODIUM 100 MG CAPSULE PO SCH ×2 (09:02→20:56)
[2021-09-24] MEDS: LOSARTAN POTASSIUM 50 MG TABLET PO SCH (09:02)
[2021-09-24] MEDS: MetFORMIN HCL 500 MG TABLET PO SCH ×2 (09:02→18:04)
[2021-09-24] MEDS: CARVEDILOL 12.5 MG TABLET PO SCH ×2 (09:03→20:56)
[2021-09-24] MEDS: FUROSEMIDE 20 MG/2 ML VIAL IVP SCH ×2 (09:03→20:56)
[2021-09-24 11:16] VITALS: BP 110/75
[2021-09-24 12:01] LABS: GLUCOMETER DEV NAME(LOC) 5N.1C; GLUCOSE,POINT OF CARE 152 MG/DL (70-110)
[2021-09-24] MEDS: INSULIN LISPRO 100 UNITS/ML SQ PRN ×3 (12:33→20:13)
[2021-09-24 12:56] LABS: GLUCOMETER DEV NAME(LOC) 5S.2B; GLUCOSE,POINT OF CARE 190 MG/DL (70-110)
[2021-09-24 14:00] LABS: APPEARANCE,URINE HAZY (CLEAR); BILIRUBIN,URINE NEGATIVE (NEGATIVE); GLUCOSE, URINE (UA) NEGATIVE (NEGATIVE); KETONES,URINE NEGATIVE (NEGATIVE); LEUKOCYTE ESTERASE ,URINE TRACE (NEGATIVE); NITRATE,URINE NEGATIVE (NEGATIVE); OCCULT BLOOD,URINE NEGATIVE (NEGATIVE); PH,URINE 5.5 (5.0-8.0); PROTEIN,URINE NEGATIVE (NEGATIVE); SPECIFIC GRAVITIY, URINE 1.019 (1.003-1.030); UROBILINOGEN,URINE <=1.0 mg/dL (<=1.0)
[2021-09-24 14:32] LABS: BACTERIA,URINE None Seen /HPF (None Seen); RBC,URINE None Seen /HPF (0-2); WBC,URINE 0-2 /HPF (0-5)
[2021-09-24] MEDS: HYDROCODONE/ACETAMINOPHEN 5-325 MG TABLET PO PRN (15:04)
[2021-09-24 15:26] VITALS: BP 90/56
[2021-09-24] MEDS ORDERED: CARV6 PO (17:32)
[2021-09-24 19:56] LABS: GLUCOMETER DEV NAME(LOC) 5S.1B; GLUCOSE,POINT OF CARE 148 MG/DL (70-110)
[2021-09-24 20:23] VITALS: BP 95/52
[2021-09-24 20:56] LABS: GLUCOMETER DEV NAME(LOC) 5N.1C; GLUCOSE,POINT OF CARE 168 MG/DL (70-110)
[2021-09-24] MEDS: ATORVASTATIN CALCIUM 40 MG TABLET PO SCH (20:56)
[2021-09-25 00:16] VITALS: BP 106/63
[2021-09-25 04:52] VITALS: BP 108/63
[2021-09-25] MEDS: ACETAMINOPHEN 325 MG TABLET PO PRN (06:15)
[2021-09-25 07:37] LABS: BASOPHILS % (AUTO) 1.1 % (0.0-2.0); EOSINOPHILS % (AUTO) 1.1 % (1.0-6.0); HEMATOCRIT 22.3 % (36-46); HEMOGLOBIN 7.4 g/dL (12.0-16.0); LYMPHOCYTES # (AUTO) 3.5 K/uL (1.0-4.8); LYMPHOCYTES % (AUTO) 25.7 % (22.0-44.0); MEAN CORPUSCULAR HEMOGLOBIN 30.1 pg (26.0-34.0); MEAN CORPUSCULAR HGB CONC 33.3 G/dL (31.0-37.0); MEAN CORPUSCULAR VOLUME 91 fL (80-100); MONOCYTES # (AUTO) 0.7 K/uL (0.1-1.0); MONOCYTES % (AUTO) 5.3 % (2.0-9.0); NEUTROPHILS # (AUTO) 9.2 K/uL (1.8-7.7); NEUTROPHILS % (AUTO) 66.8 % (40.0-70.0); PLATELET COUNT (AUTO) 424 K/uL (150-450); RED BLOOD CELL COUNT(AUTO) 2.45 MIL/uL (4.00-5.20); RED CELL DISTRIBUTION WIDTH 14.7 % (11.5-14.5)
[2021-09-25 07:55] VITALS: BP 125/81
[2021-09-25] MEDS: OXYMETAZOLINE HCL 0.05% 15 ML NASAL SPRAY NASAL SCH ×2 (08:00→16:00)
[2021-09-25 08:41] LABS: GLUCOMETER DEV NAME(LOC) 5N.1C; GLUCOSE,POINT OF CARE 115 MG/DL (70-110)
[2021-09-25] MEDS: DOCUSATE SODIUM 100 MG CAPSULE PO SCH ×2 (08:59→20:26)
[2021-09-25] MEDS: MetFORMIN HCL 500 MG TABLET PO SCH ×2 (09:00→17:33)
[2021-09-25] MEDS: LOSARTAN POTASSIUM 50 MG TABLET PO SCH (09:00)
[2021-09-25] MEDS: PANTOPRAZOLE SODIUM 40 MG DR TABLET PO SCH (09:00)
[2021-09-25] MEDS: FUROSEMIDE 20 MG/2 ML VIAL IVP SCH (09:00)
[2021-09-25] MEDS: CARVEDILOL 12.5 MG TABLET PO SCH ×2 (09:00→20:26)
[2021-09-25] MEDS: HYDROCODONE/ACETAMINOPHEN 5-325 MG TABLET PO PRN ×2 (09:00→17:33)
[2021-09-25] MEDS: AmLODIPine BESYLATE 10 MG TABLET PO SCH (09:00)
[2021-09-25 11:15] VITALS: BP 121/74
[2021-09-25] MEDS: INSULIN LISPRO 100 UNITS/ML SQ PRN ×2 (11:59→20:46)
[2021-09-25 13:46] LABS: GLUCOMETER DEV NAME(LOC) 5S.2B; GLUCOSE,POINT OF CARE 171 MG/DL (70-110)
[2021-09-25 15:57] VITALS: BP 100/48
[2021-09-25 20:01] VITALS: BP 112/68
[2021-09-25] MEDS: ATORVASTATIN CALCIUM 40 MG TABLET PO SCH (20:25)
[2021-09-25] MEDS: FUROSEMIDE 20 MG TABLET PO SCH (20:25)
[2021-09-25 20:26] LABS: GLUCOMETER DEV NAME(LOC) 5S.2B; GLUCOSE,POINT OF CARE 166 MG/DL (70-110)
[2021-09-26] VITALS (7 sets, daily range): BP systolic 94–126; BP diastolic 57–73
[2021-09-26] MEDS: OXYMETAZOLINE HCL 0.05% 15 ML NASAL SPRAY NASAL SCH ×3 (00:08→15:44)
[2021-09-26] MEDS: HYDROCODONE/ACETAMINOPHEN 5-325 MG TABLET PO PRN ×3 (04:43→21:31)
[2021-09-26] MEDS: INSULIN LISPRO 100 UNITS/ML SQ PRN ×3 (06:11→17:28)
[2021-09-26 06:21] LABS: GLUCOMETER DEV NAME(LOC) 5N.3; GLUCOSE,POINT OF CARE 152 MG/DL (70-110)
[2021-09-26 06:31] LABS: GLUCOMETER DEV NAME(LOC) 5S.1B; GLUCOSE,POINT OF CARE 140 MG/DL (70-110)
[2021-09-26] MEDS: ASPIRIN 81 MG CHEWABLE TABLET PO SCH (08:28)
[2021-09-26] MEDS: CARVEDILOL 12.5 MG TABLET PO SCH ×2 (08:28→21:00)
[2021-09-26] MEDS: PANTOPRAZOLE SODIUM 40 MG DR TABLET PO SCH (08:28)
[2021-09-26] MEDS: AmLODIPine BESYLATE 10 MG TABLET PO SCH (08:28)
[2021-09-26] MEDS: MetFORMIN HCL 500 MG TABLET PO SCH ×2 (08:29→17:28)
[2021-09-26] MEDS: FUROSEMIDE 20 MG TABLET PO SCH ×2 (08:29→21:00)
[2021-09-26] MEDS: LOSARTAN POTASSIUM 50 MG TABLET PO SCH (08:29)
[2021-09-26] MEDS: DOCUSATE SODIUM 100 MG CAPSULE PO SCH ×2 (08:32→21:31)
[2021-09-26] MEDS: MORPHINE SULFATE 2 MG/ML SYRINGE IVP PRN (13:55)
[2021-09-26 18:17] LABS: GLUCOMETER DEV NAME(LOC) 5S.2B; GLUCOSE,POINT OF CARE 188 MG/DL (70-110)
[2021-09-26 18:17] LABS: GLUCOMETER DEV NAME(LOC) 5S.2B; GLUCOSE,POINT OF CARE 175 MG/DL (70-110)
[2021-09-26] MEDS: ATORVASTATIN CALCIUM 40 MG TABLET PO SCH (21:31)
[2021-09-27] MEDS: OXYMETAZOLINE HCL 0.05% 15 ML NASAL SPRAY NASAL SCH ×4 (00:48→16:00)
[2021-09-27 04:00] VITALS: BP 120/74
[2021-09-27] MEDS: INSULIN LISPRO 100 UNITS/ML SQ PRN ×3 (06:03→20:24)
[2021-09-27 07:18] LABS: BASOPHILS % (AUTO) 0.9 % (0.0-2.0); EOSINOPHILS % (AUTO) 1.3 % (1.0-6.0); HEMATOCRIT 21.1 % (36-46); HEMOGLOBIN 7.4 g/dL (12.0-16.0); LYMPHOCYTES # (AUTO) 2.1 K/uL (1.0-4.8); LYMPHOCYTES % (AUTO) 20.8 % (22.0-44.0); MEAN CORPUSCULAR HEMOGLOBIN 31.2 pg (26.0-34.0); MEAN CORPUSCULAR HGB CONC 34.8 G/dL (31.0-37.0); MEAN CORPUSCULAR VOLUME 90 fL (80-100); MONOCYTES # (AUTO) 0.5 K/uL (0.1-1.0); MONOCYTES % (AUTO) 5.2 % (2.0-9.0); NEUTROPHILS # (AUTO) 7.4 K/uL (1.8-7.7); NEUTROPHILS % (AUTO) 71.8 % (40.0-70.0); PLATELET COUNT (AUTO) 424 K/uL (150-450); RED BLOOD CELL COUNT(AUTO) 2.36 MIL/uL (4.00-5.20); RED CELL DISTRIBUTION WIDTH 14.2 % (11.5-14.5)
[2021-09-27 07:25] VITALS: BP 112/74
[2021-09-27 07:30] LABS: ANION GAP 6 mmol/L (8-16); CALCIUM, TOTAL 8.4 mg/dL (8.8-10.5); CARBON DIOXIDE 30 mmol/L (22-29); CHLORIDE 102 mmol/L (98-107); CREATININE 0.92 mg/dL (0.60-1.30); GLOMERULAR FILTR. RATE CALC > 60 mL/min (>60); GLUCOSE,RANDOM 148 mg/dL (70-110); POTASSIUM 3.8 mmol/L (3.5-5.1); SODIUM SERUM 138 mmol/L (136-145); UREA NITROGEN, BLOOD 20 mg/dL (7-18)
[2021-09-27] MEDS: DOCUSATE SODIUM 100 MG CAPSULE PO SCH ×2 (09:00→20:18)
[2021-09-27] MEDS: AmLODIPine BESYLATE 10 MG TABLET PO SCH (09:18)
[2021-09-27] MEDS: ASPIRIN 81 MG CHEWABLE TABLET PO SCH (09:18)
[2021-09-27] MEDS: MetFORMIN HCL 500 MG TABLET PO SCH ×2 (09:18→17:47)
[2021-09-27] MEDS: FUROSEMIDE 20 MG TABLET PO SCH ×2 (09:19→20:18)
[2021-09-27] MEDS: LOSARTAN POTASSIUM 50 MG TABLET PO SCH (09:19)
[2021-09-27] MEDS: CARVEDILOL 12.5 MG TABLET PO SCH ×2 (09:19→20:18)
[2021-09-27] MEDS: PANTOPRAZOLE SODIUM 40 MG DR TABLET PO SCH (09:19)
[2021-09-27 11:30] VITALS: BP 101/66
[2021-09-27] MEDS ORDERED: MAGNESIUM SULFATE 2 GM/WATER 50 ML IV PRN (11:45)
[2021-09-27] MEDS ORDERED: MAGNESIUM SULFATE 4 GM/WATER 100 ML IV PRN (11:45)
[2021-09-27 12:17] LABS: GLUCOMETER DEV NAME(LOC) 5S.1B; GLUCOSE,POINT OF CARE 161 MG/DL (70-110)
[2021-09-27 12:17] LABS: GLUCOMETER DEV NAME(LOC) 5S.1B; GLUCOSE,POINT OF CARE 129 MG/DL (70-110)
[2021-09-27 12:21] LABS: GLUCOMETER DEV NAME(LOC) 5N.3; GLUCOSE,POINT OF CARE 157 MG/DL (70-110)
[2021-09-27 13:13] LABS: ALBUMIN 2.6 g/dL (3.4-5.0)
[2021-09-27] MEDS: HYDROCODONE/ACETAMINOPHEN 5-325 MG TABLET PO PRN ×2 (15:45→20:19)
[2021-09-27 15:57] VITALS: BP 109/53
[2021-09-27] MEDS: MAGNESIUM OXIDE 400 MG TABLET PO PRN (16:56)
[2021-09-27 19:41] LABS: GLUCOMETER DEV NAME(LOC) 5N.3; GLUCOSE,POINT OF CARE 172 MG/DL (70-110)
[2021-09-27 20:02] VITALS: BP 114/64
[2021-09-27] MEDS: ATORVASTATIN CALCIUM 40 MG TABLET PO SCH (20:18)
[2021-09-27 23:10] VITALS: BP 118/66
[2021-09-28] MEDS: MAGNESIUM OXIDE 400 MG TABLET PO PRN ×2 (00:27→08:14)
[2021-09-28 05:04] VITALS: BP 100/64
[2021-09-28] MEDS: HYDROCODONE/ACETAMINOPHEN 5-325 MG TABLET PO PRN (05:32)
[2021-09-28] MEDS: INSULIN LISPRO 100 UNITS/ML SQ PRN ×4 (05:39→20:58)
[2021-09-28 07:08] LABS: BASOPHILS % (AUTO) 1.4 % (0.0-2.0); EOSINOPHILS % (AUTO) 1.4 % (1.0-6.0); HEMATOCRIT 21.8 % (36-46); HEMOGLOBIN 7.5 g/dL (12.0-16.0); LYMPHOCYTES # (AUTO) 2.4 K/uL (1.0-4.8); LYMPHOCYTES % (AUTO) 23.8 % (22.0-44.0); MEAN CORPUSCULAR HEMOGLOBIN 30.9 pg (26.0-34.0); MEAN CORPUSCULAR HGB CONC 34.5 G/dL (31.0-37.0); MEAN CORPUSCULAR VOLUME 90 fL (80-100); MONOCYTES # (AUTO) 0.7 K/uL (0.1-1.0); MONOCYTES % (AUTO) 6.5 % (2.0-9.0); NEUTROPHILS # (AUTO) 6.7 K/uL (1.8-7.7); NEUTROPHILS % (AUTO) 66.9 % (40.0-70.0); PLATELET COUNT (AUTO) 435 K/uL (150-450); RED BLOOD CELL COUNT(AUTO) 2.44 MIL/uL (4.00-5.20); RED CELL DISTRIBUTION WIDTH 14.2 % (11.5-14.5)
[2021-09-28 07:18] VITALS: BP 105/72
[2021-09-28 07:21] LABS: ALANINE AMINOTRANSFERASE 50 U/L (12-78); ALBUMIN 2.5 g/dL (3.4-5.0); ALKALINE PHOSPHATASE 55 U/L (46-116); ANION GAP 5 mmol/L (8-16); ASPARTATE AMINOTRANSFERASE 30 U/L (15-37); BILIRUBIN,TOTAL 0.3 mg/dL (0.1-1.0); CALCIUM, TOTAL 8.4 mg/dL (8.8-10.5); CARBON DIOXIDE 30 mmol/L (22-29); CHLORIDE 102 mmol/L (98-107); GLOMERULAR FILTR. RATE CALC > 60 mL/min (>60); GLUCOSE,RANDOM 148 mg/dL (70-110); POTASSIUM 3.4 mmol/L (3.5-5.1); SODIUM SERUM 137 mmol/L (136-145); TOTAL PROTEIN, SERUM 6.2 g/dL (6.4-8.2); UREA NITROGEN, BLOOD 18 mg/dL (7-18)
[2021-09-28] MEDS: OXYMETAZOLINE HCL 0.05% 15 ML NASAL SPRAY NASAL SCH ×4 (08:00→23:47)
[2021-09-28] MEDS: DOCUSATE SODIUM 100 MG CAPSULE PO SCH ×2 (08:14→20:01)
[2021-09-28] MEDS: PANTOPRAZOLE SODIUM 40 MG DR TABLET PO SCH (08:14)
[2021-09-28] MEDS: MetFORMIN HCL 500 MG TABLET PO SCH ×2 (08:14→17:37)
[2021-09-28] MEDS: FUROSEMIDE 20 MG TABLET PO SCH ×2 (08:14→20:52)
[2021-09-28] MEDS: CARVEDILOL 12.5 MG TABLET PO SCH ×3 (08:15→20:42)
[2021-09-28] MEDS: LOSARTAN POTASSIUM 50 MG TABLET PO SCH (08:15)
[2021-09-28] MEDS: ASPIRIN 81 MG CHEWABLE TABLET PO SCH (08:15)
[2021-09-28 09:16] LABS: GLUCOMETER DEV NAME(LOC) 5S.2B; GLUCOSE,POINT OF CARE 150 MG/DL (70-110)
[2021-09-28 11:37] VITALS: BP 118/69
[2021-09-28 12:21] LABS: GLUCOMETER DEV NAME(LOC) 5N.1C; GLUCOSE,POINT OF CARE 185 MG/DL (70-110)
[2021-09-28] MEDS: ACETAMINOPHEN 325 MG TABLET PO PRN (14:41)
[2021-09-28 15:40] VITALS: BP 118/80
[2021-09-28 19:55] VITALS: BP 105/71
[2021-09-28] MEDS: ONDANSETRON HCL 4 MG/2 ML VIAL IVP PRN (19:58)
[2021-09-28 20:16] LABS: GLUCOMETER DEV NAME(LOC) 5S.2B; GLUCOSE,POINT OF CARE 162 MG/DL (70-110)
[2021-09-28 20:16] LABS: GLUCOMETER DEV NAME(LOC) 5S.2B; GLUCOSE,POINT OF CARE 159 MG/DL (70-110)
[2021-09-28] MEDS: ATORVASTATIN CALCIUM 40 MG TABLET PO SCH (20:52)
[2021-09-28 22:31] LABS: GLUCOMETER DEV NAME(LOC) 5N.1C; GLUCOSE,POINT OF CARE 152 MG/DL (70-110)
[2021-09-29 00:10] VITALS: BP 113/80
[2021-09-29 04:00] VITALS: BP 122/76
[2021-09-29] MEDS: HYDROCODONE/ACETAMINOPHEN 5-325 MG TABLET PO PRN ×2 (04:13→20:12)
[2021-09-29] MEDS: MECLIZINE HCL 25 MG TABLET PO PRN (04:16)
[2021-09-29 06:21] LABS: GLUCOMETER DEV NAME(LOC) 5N.3; GLUCOSE,POINT OF CARE 169 MG/DL (70-110)
[2021-09-29] MEDS: INSULIN LISPRO 100 UNITS/ML SQ PRN ×2 (06:41→12:14)
[2021-09-29 07:57] VITALS: BP 142/82
[2021-09-29] MEDS: OXYMETAZOLINE HCL 0.05% 15 ML NASAL SPRAY NASAL SCH ×2 (08:00→14:22)
[2021-09-29] MEDS: DOCUSATE SODIUM 100 MG CAPSULE PO SCH ×2 (08:44→20:11)
[2021-09-29] MEDS: MetFORMIN HCL 500 MG TABLET PO SCH ×2 (08:44→17:05)
[2021-09-29] MEDS: FUROSEMIDE 20 MG TABLET PO SCH ×2 (08:45→20:11)
[2021-09-29] MEDS: LOSARTAN POTASSIUM 50 MG TABLET PO SCH (08:45)
[2021-09-29] MEDS: CARVEDILOL 12.5 MG TABLET PO SCH ×2 (08:45→20:11)
[2021-09-29] MEDS: ASPIRIN 81 MG CHEWABLE TABLET PO SCH (08:45)
[2021-09-29] MEDS: PANTOPRAZOLE SODIUM 40 MG DR TABLET PO SCH (08:45)
[2021-09-29 12:11] VITALS: BP 121/73
[2021-09-29 12:16] LABS: GLUCOMETER DEV NAME(LOC) 5S.2B; GLUCOSE,POINT OF CARE 173 MG/DL (70-110)
[2021-09-29 16:14] VITALS: BP 111/76
[2021-09-29] MEDS: ACETAMINOPHEN 325 MG TABLET PO PRN (18:23)
[2021-09-29 19:30] VITALS: BP 112/72
[2021-09-29] MEDS: ATORVASTATIN CALCIUM 40 MG TABLET PO SCH (20:12)
[2021-09-30] MEDS: OXYMETAZOLINE HCL 0.05% 15 ML NASAL SPRAY NASAL SCH ×4 (00:20→23:55)
[2021-09-30 05:09] VITALS: BP 104/68
[2021-09-30] MEDS: INSULIN LISPRO 100 UNITS/ML SQ PRN ×3 (06:11→21:39)
[2021-09-30 07:14] VITALS: BP 114/70
[2021-09-30] MEDS: ASPIRIN 81 MG CHEWABLE TABLET PO SCH (08:53)
[2021-09-30] MEDS: CARVEDILOL 12.5 MG TABLET PO SCH ×2 (08:53→21:34)
[2021-09-30] MEDS: MetFORMIN HCL 500 MG TABLET PO SCH ×2 (08:53→19:05)
[2021-09-30] MEDS: FUROSEMIDE 20 MG TABLET PO SCH ×2 (08:53→21:34)
[2021-09-30] MEDS: PANTOPRAZOLE SODIUM 40 MG DR TABLET PO SCH (08:53)
[2021-09-30] MEDS: LOSARTAN POTASSIUM 50 MG TABLET PO SCH (08:53)
[2021-09-30] MEDS: HYDROCODONE/ACETAMINOPHEN 5-325 MG TABLET PO PRN (08:54)
[2021-09-30] MEDS: DOCUSATE SODIUM 100 MG CAPSULE PO SCH ×2 (08:54→21:34)
[2021-09-30 10:57] VITALS: BP 124/69
[2021-09-30 15:11] VITALS: BP 125/73
[2021-09-30 20:17] VITALS: BP 107/67
[2021-09-30] MEDS: ATORVASTATIN CALCIUM 40 MG TABLET PO SCH (21:34)
[2021-09-30] MEDS: ACETAMINOPHEN 325 MG TABLET PO PRN (21:40)
[2021-10-01 00:07] VITALS: BP 99/67
[2021-10-01] MEDS: HYDROCODONE/ACETAMINOPHEN 5-325 MG TABLET PO PRN ×2 (01:34→13:49)
[2021-10-01 04:24] VITALS: BP 108/57
[2021-10-01] MEDS: INSULIN LISPRO 100 UNITS/ML SQ PRN ×2 (06:17→13:00)
[2021-10-01 07:20] VITALS: BP 111/70
[2021-10-01] MEDS: LOSARTAN POTASSIUM 50 MG TABLET PO SCH (09:00)
[2021-10-01] MEDS: OXYMETAZOLINE HCL 0.05% 15 ML NASAL SPRAY NASAL SCH ×2 (09:08→16:32)
[2021-10-01] MEDS: CARVEDILOL 12.5 MG TABLET PO SCH (09:08)
[2021-10-01] MEDS: MetFORMIN HCL 500 MG TABLET PO SCH ×2 (09:08→17:58)
[2021-10-01] MEDS: DOCUSATE SODIUM 100 MG CAPSULE PO SCH (09:08)
[2021-10-01] MEDS: ASPIRIN 81 MG CHEWABLE TABLET PO SCH (09:08)
[2021-10-01] MEDS: FUROSEMIDE 20 MG TABLET PO SCH (09:09)
[2021-10-01] MEDS: PANTOPRAZOLE SODIUM 40 MG DR TABLET PO SCH (09:09)
[2021-10-01 11:18] VITALS: BP 113/80
[2021-10-01 15:09] VITALS: BP 123/78
[2021-10-02 05:32] LABS: GLUCOMETER DEV NAME(LOC) 5N.1C; GLUCOSE,POINT OF CARE 117 MG/DL (70-110)
[2021-10-02 05:32] LABS: GLUCOMETER DEV NAME(LOC) 5N.1C; GLUCOSE,POINT OF CARE 186 MG/DL (70-110)
[2021-10-02 05:32] LABS: GLUCOMETER DEV NAME(LOC) 5N.1C; GLUCOSE,POINT OF CARE 172 MG/DL (70-110)
[2021-10-02 06:27] LABS: GLUCOMETER DEV NAME(LOC) 5S.2B; GLUCOSE,POINT OF CARE 128 MG/DL (70-110)
[2021-10-02 06:27] LABS: GLUCOMETER DEV NAME(LOC) 5S.2B; GLUCOSE,POINT OF CARE 193 MG/DL (70-110)
[2021-10-02 06:32] LABS: GLUCOMETER DEV NAME(LOC) 5N.3; GLUCOSE,POINT OF CARE 130 MG/DL (70-110)
[2021-10-02 08:26] LABS: GLUCOMETER DEV NAME(LOC) 5S.1B; GLUCOSE,POINT OF CARE 170 MG/DL (70-110)
[2021-10-03 16:21] LABS: GLUCOMETER DEV NAME(LOC) 5N.1C; GLUCOSE,POINT OF CARE 158 MG/DL (70-110)
== END 2021-10-01 18:00 | DRG 45 ==
LOC: EMS 07:45 → 5S 12:00
PROVIDERS: ADMIT Internal Medicine; ATTEND Internal Medicine
DX: I63.9 Cerebral infarction, unspecified (principal); I50.23 Acute on chronic systolic (congestive) heart failure; I42.9 Cardiomyopathy, unspecified; E11.65 Type 2 diabetes mellitus with hyperglycemia; D64.9 Anemia, unspecified; D72.829 Elevated white blood cell count, unspecified; E66.01 Morbid (severe) obesity due to excess calories; I11.0 Hypertensive heart disease with heart failure; F15.10 Other stimulant abuse, uncomplicated; I16.1 Hypertensive emergency; R04.0 Epistaxis; Z20.822 Contact with and (suspected) exposure to COVID-19; Z88.8 Allergy status to other drugs, medicaments and biological substances; I25.2 Old myocardial infarction; Z91.041 Radiographic dye allergy status; Z68.42 Body mass index [BMI] 45.0-49.9, adult; Z91.19 Patient's noncompliance with other medical treatment and regimen
CPT/HCPCS: 70450; 70553; 71045; 71250; 72192; 74150; 80048; 80053; 80061; 81001; 82040; 82550; 82962; 83036; 83690; 83735; 83880; 84484; 84702; 85025; 85610; 87081; 92610; 93005; 93306; 93880; 97110; 97116; 97162; 97166; 97530; 97535; 99291; J1940; J2060; J2270; J2405; J3490; J7050; Q9967; 36415-L1; 36415-TC

== ENCOUNTER 2021-10-04 15:19 | Emergency (ER) | payer MEDICAID ==
[~2021-10-04] VITALS: Ht 157.5 cm; Wt 100.0 kg
[~2021-10-04 15:19] MED LIST changes: -CARV3 PO; +CARV6 PO
[2021-10-04 19:00] VITALS: BP 139/74
[2021-10-04 19:23] LABS: AMPHET/METH SCREEN,URINE NEGATIVE (NEGATIVE); BARBITURATE SCREEN, URINE NEGATIVE (NEGATIVE); BENZODIAZEPINES SCREEN,URINE NEGATIVE (NEGATIVE); CANNABINOID SCREEN,URINE NEGATIVE (NEGATIVE); COCAINE SCREEN,URINE NEGATIVE (NEGATIVE); METHADONE SCREEN, URINE NEGATIVE (NEGATIVE); OPIATE SCREEN,URINE NEGATIVE (NEGATIVE)
[2021-10-04 19:24] LABS: PHENCYCLIDINE SCREEN,URINE NEGATIVE (NEGATIVE)
== END 2021-10-04 19:47 | disposition home or self-care (01) ==
LOC: EMS 15:20
DX: R53.83 Other fatigue (principal); I11.0 Hypertensive heart disease with heart failure; I50.9 Heart failure, unspecified; E11.9 Type 2 diabetes mellitus without complications; F15.90 Other stimulant use, unspecified, uncomplicated; Z76.0 Encounter for issue of repeat prescription; Z91.041 Radiographic dye allergy status; Z79.82 Long term (current) use of aspirin; Z79.899 Other long term (current) drug therapy
CPT/HCPCS: 93005; 99284

== ENCOUNTER 2024-07-03 12:48 | Inpatient (IN) | payer MEDICAID ==
[~2024-07-03] VITALS: Ht 160 cm; Wt 115.7 kg
[~2024-07-03 12:48] MED LIST changes: +ALBU18HF12 IH; -ASPI-1450 PO; +ASPI81TA87 PO; +BUSP15TA3 PO; -CARV6 PO; +CARV6.2534 PO; +DULA4.5P SQ; +EMPA25TA3 PO; +FURO-152 PO; -FURO20 PO; +LISI-663 PO; +PANT-31 PO; +ROSU40TA88 PO; +SACU1TAB PO; +SPIR-37 PO; +SUMA50TA17 PO; -[UNRECOGNIZED DRUG - REMARK]
[2024-07-03] MEDS ORDERED: ASPI-1444 PO (13:03)
[2024-07-03] MEDS ORDERED: TRAZ-252 PO (13:03)
[2024-07-03] MEDS ORDERED: LIDO700A30 TP (13:03)
[2024-07-03] MEDS ORDERED: BECL10.62 IH (13:03)
[2024-07-03] MEDS ORDERED: MONT-40 PO (13:03)
[2024-07-03] MEDS ORDERED: AMLO10TA55 PO (13:03)
[2024-07-03] MEDS ORDERED: FAMO20 PO (13:03)
[2024-07-03] MEDS ORDERED: FLUT16H IH (13:03)
[2024-07-03] MEDS ORDERED: SENN-374 PO (13:03)
[2024-07-03] MEDS ORDERED: DICL100G60 TP (13:03)
[2024-07-03 15:04] LABS: EOSINOPHILS % (AUTO) 2.6 % (1.0-6.0); HEMATOCRIT 42.6 % (36-46); LYMPHOCYTES # (AUTO) 1.8 K/uL (1.0-4.8); LYMPHOCYTES % (AUTO) 26.9 % (22.0-44.0); MEAN CORPUSCULAR HEMOGLOBIN 29.7 pg (26.0-34.0); MEAN CORPUSCULAR HGB CONC 32.9 G/dL (31.0-37.0); MEAN CORPUSCULAR VOLUME 90 fL (80-100); MONOCYTES # (AUTO) 0.5 K/uL (0.1-1.0); MONOCYTES % (AUTO) 7.2 % (2.0-9.0); NEUTROPHILS # (AUTO) 4.2 K/uL (1.8-7.7); NEUTROPHILS % (AUTO) 62.3 % (40.0-70.0); PLATELET COUNT (AUTO) 336 K/uL (150-450); RED BLOOD CELL COUNT(AUTO) 4.72 MIL/uL (4.00-5.20); RED CELL DISTRIBUTION WIDTH 13.6 % (11.5-14.5); WHITE BLOOD COUNT (AUTO) 6.8 K/uL (4.5-11.0)
[2024-07-03 15:09] LABS: ANION GAP 5 mmol/L (8-16); CALCIUM, TOTAL 8.7 mg/dL (8.8-10.5); CARBON DIOXIDE 32 mmol/L (22-29); CHLORIDE 106 mmol/L (98-107); CREATININE 1.01 mg/dL (0.60-1.30); GLOMERULAR FILTR. RATE CALC 58 mL/min (>60); GLUCOSE,RANDOM 86 mg/dL (70-110); POTASSIUM 4.7 mmol/L (3.5-5.1); SODIUM SERUM 143 mmol/L (136-145); UREA NITROGEN, BLOOD 18 mg/dL (7-18)
[2024-07-03 15:20] LABS: TROPONIN I-HIGH SENSITIVITY 105 ng/L (<51)
[2024-07-03 15:25] LABS: B-TYPE NATRIURETIC PEPTIDE 107 pg/mL (0-100)
[2024-07-03 17:23] LABS: TROPONIN I-HIGH SENSITIVITY 110 ng/L (<51)
[2024-07-03 18:45] VITALS: BP 154/80; PULSE 76; RESP 16; TEMP 97.8; O2SAT 98
[2024-07-03] MEDS ORDERED: ACETAMINOPHEN 325 MG TABLET PO PRN (19:45)
[2024-07-03] MEDS ORDERED: BISACODYL 10 MG RECTAL RECTAL SUPPOSITORY PR PRN (19:45)
[2024-07-03] MEDS ORDERED: ZOLPIDEM TARTRATE 5 MG TABLET PO PRN (19:45)
[2024-07-03] MEDS ORDERED: MAGNESIUM HYDROXIDE SUSPENSION 30 ML UDCUP PO PRN (19:45)
[2024-07-03] MEDS: DOCUSATE SODIUM 100 MG CAPSULE PO SCH (20:55)
[2024-07-03] MEDS: BusPIRone HCL 15 MG TABLET PO SCH (20:56)
[2024-07-03] MEDS: TraZODone HCL 50 MG TABLET PO SCH (20:56)
[2024-07-03] MEDS: BECLOMETHASONE DIPR HFA 80 MCG/PUFF 10.6 GM INHALER IH SCH (20:56)
[2024-07-03 21:03] VITALS: BP 135/88; PULSE 77; RESP 18; TEMP 98; O2SAT 96
[2024-07-03] MEDS: HYDROCODONE/ACETAMINOPHEN 5-325 MG TABLET PO PRN (21:03)
[2024-07-03] MEDS: HEPARIN SODIUM,PORCINE 5,000 UNITS/ML VIAL SQ SCH (23:40)
[2024-07-03 23:42] VITALS: BP 124/66; PULSE 72; RESP 18; TEMP 97.8; O2SAT 95
[2024-07-04 04:10] VITALS: BP 127/90; PULSE 79; RESP 18; TEMP 97.5; O2SAT 100
[2024-07-04 06:32] LABS: BASOPHILS % (AUTO) 0.9 % (0.0-2.0); EOSINOPHILS % (AUTO) 2.7 % (1.0-6.0); HEMOGLOBIN 12.9 g/dL (12.0-16.0); LYMPHOCYTES # (AUTO) 1.9 K/uL (1.0-4.8); LYMPHOCYTES % (AUTO) 31.2 % (22.0-44.0); MEAN CORPUSCULAR HEMOGLOBIN 30.1 pg (26.0-34.0); MEAN CORPUSCULAR HGB CONC 33.2 G/dL (31.0-37.0); MEAN CORPUSCULAR VOLUME 91 fL (80-100); MONOCYTES # (AUTO) 0.5 K/uL (0.1-1.0); MONOCYTES % (AUTO) 7.8 % (2.0-9.0); NEUTROPHILS # (AUTO) 3.4 K/uL (1.8-7.7); NEUTROPHILS % (AUTO) 57.4 % (40.0-70.0); PLATELET COUNT (AUTO) 311 K/uL (150-450); RED CELL DISTRIBUTION WIDTH 13.5 % (11.5-14.5); WHITE BLOOD COUNT (AUTO) 5.9 K/uL (4.5-11.0)
[2024-07-04 06:53] LABS: CALCIUM, TOTAL 8.4 mg/dL (8.8-10.5); CREATININE 1.02 mg/dL (0.60-1.30); POTASSIUM 3.9 mmol/L (3.5-5.1)
[2024-07-04 07:31] LABS: TROPONIN I-HIGH SENSITIVITY 83 ng/L (<51)
[2024-07-04 07:39] VITALS: BP 137/81; PULSE 68; RESP 18; TEMP 97.9; O2SAT 95
[2024-07-04] MEDS ORDERED: EMPAGLIFLOZIN 10 MG TABLET PO SCH (09:00)
[2024-07-04] MEDS ORDERED: AmLODIPine BESYLATE 10 MG TABLET PO SCH (09:00)
[2024-07-04] MEDS: ATORVASTATIN CALCIUM 10 MG TABLET PO SCH (09:06)
[2024-07-04] MEDS: CARVEDILOL 3.125 MG TABLET PO SCH (09:06)
[2024-07-04] MEDS: MONTELUKAST SODIUM 10 MG TABLET PO SCH (09:06)
[2024-07-04] MEDS: PANTOPRAZOLE SODIUM 40 MG DR TABLET PO SCH (09:06)
[2024-07-04] MEDS: MORPHINE SULFATE 2 MG/ML SYRINGE IVP PRN (09:07)
[2024-07-04] MEDS: ASPIRIN 81 MG DR TABLET PO SCH (09:07)
[2024-07-04] MEDS: SPIRONOLACTONE 25 MG TABLET PO SCH (09:07)
[2024-07-04] MEDS: ONDANSETRON HCL 4 MG/2 ML VIAL IVP PRN (09:07)
[2024-07-04 11:04] LABS: ALCOHOL, URINE DRUG SCREEN NEGATIVE (NEGATIVE); AMPHET/METH SCREEN,URINE NEGATIVE (NEGATIVE); BARBITURATE SCREEN, URINE NEGATIVE (NEGATIVE); BENZODIAZEPINES SCREEN,URINE NEGATIVE (NEGATIVE); CANNABINOID SCREEN,URINE NEGATIVE (NEGATIVE); COCAINE SCREEN,URINE NEGATIVE (NEGATIVE); METHADONE SCREEN, URINE NEGATIVE (NEGATIVE); OPIATE SCREEN,URINE POSITIVE (NEGATIVE); PHENCYCLIDINE SCREEN,URINE NEGATIVE (NEGATIVE)
[2024-07-04 11:47] VITALS: BP 131/79; PULSE 68; RESP 18; TEMP 97.7; O2SAT 97
[2024-07-04 12:06] LABS: PH,URINE DRUG SCREEN 5.5 (5.0-8.0)
[2024-07-04 16:00] VITALS: BP 122/81; PULSE 76; RESP 18; TEMP 97.9; O2SAT 95
[2024-07-04 20:03] VITALS: BP 108/62; PULSE 78; RESP 18; TEMP 98.2; O2SAT 96
[2024-07-05 00:18] VITALS: BP 113/71; PULSE 71; RESP 16; TEMP 98.3; O2SAT 96
[2024-07-05 04:00] VITALS: BP 117/64; PULSE 71; RESP 18; TEMP 98; O2SAT 100
[2024-07-05 05:10] VITALS: BP 106/67; PULSE 74; RESP 16; TEMP 97.7; O2SAT 95
[2024-07-05 06:43] LABS: BASOPHILS % (AUTO) 0.9 % (0.0-2.0); HEMATOCRIT 39.1 % (36-46); HEMOGLOBIN 12.9 g/dL (12.0-16.0); LYMPHOCYTES # (AUTO) 1.9 K/uL (1.0-4.8); LYMPHOCYTES % (AUTO) 33.2 % (22.0-44.0); MEAN CORPUSCULAR VOLUME 91 fL (80-100); MONOCYTES # (AUTO) 0.3 K/uL (0.1-1.0); MONOCYTES % (AUTO) 5.5 % (2.0-9.0); NEUTROPHILS # (AUTO) 3.4 K/uL (1.8-7.7); NEUTROPHILS % (AUTO) 58.4 % (40.0-70.0); PLATELET COUNT (AUTO) 283 K/uL (150-450); RED BLOOD CELL COUNT(AUTO) 4.31 MIL/uL (4.00-5.20); RED CELL DISTRIBUTION WIDTH 13.5 % (11.5-14.5); WHITE BLOOD COUNT (AUTO) 5.8 K/uL (4.5-11.0)
[2024-07-05 06:51] LABS: CALCIUM, TOTAL 8.9 mg/dL (8.8-10.5); CREATININE 1.04 mg/dL (0.60-1.30); POTASSIUM 4.1 mmol/L (3.5-5.1)
[2024-07-05 07:48] VITALS: BP 123/78; PULSE 77; RESP 18; TEMP 97.9; O2SAT 93
[2024-07-05 11:23] VITALS: BP 122/69; PULSE 73; RESP 18; TEMP 98.4; O2SAT 98
[2024-07-05 14:58] VITALS: BP 129/80; PULSE 78; RESP 19; TEMP 98.3; O2SAT 98
[2024-07-05] MEDS ORDERED: METO25XL PO (15:14)
[2024-07-05] MEDS ORDERED: FURO20TA5 PO (15:14)
== END 2024-07-05 16:00 | disposition home or self-care (01) | DRG 205 ==
LOC: EMS 13:23 → EDH 17:11 → 5S 17:55
PROVIDERS: ADMIT Internal Medicine; ATTEND Internal Medicine
DX: I42.0 Dilated cardiomyopathy (principal); I50.23 Acute on chronic systolic (congestive) heart failure; E44.0 Moderate protein-calorie malnutrition; I11.0 Hypertensive heart disease with heart failure; E11.9 Type 2 diabetes mellitus without complications; E78.5 Hyperlipidemia, unspecified; G43.909 Migraine, unspecified, not intractable, without status migrainosus; E66.01 Morbid (severe) obesity due to excess calories; I25.10 Atherosclerotic heart disease of native coronary artery without angina pectoris; Z86.73 Personal history of transient ischemic attack (TIA), and cerebral infarction without residual deficits; Z91.041 Radiographic dye allergy status; Z95.5 Presence of coronary angioplasty implant and graft; Z95.810 Presence of automatic (implantable) cardiac defibrillator; Z88.8 Allergy status to other drugs, medicaments and biological substances; I25.2 Old myocardial infarction; Z68.42 Body mass index [BMI] 45.0-49.9, adult
CPT/HCPCS: 71045; 80048; 80307; 83690; 83880; 84484; 84703; 85025; 93005; 93306; 99285; J1644; J2270; J2405; J3535; 36415-L1; 36415-TC